=== PATIENT | male | born 1930 | race Caucasian/White ===

== ENCOUNTER → 2017-08-14 | Outpatient (CLI) | payer MEDICARE, OTHER ==
[~2017-08-14] MED LIST: ALBU90OI INH; ATOR40TA PO; Analpram-HC 2.530 GM; Anucort-Hc25 MG PR; BISA5EC PO; CEPH500 PO; CLOP75 PO; CLOT10 SS; CODACE30 PO; Citrate Of Mag300 ML PO; Clotrimazole-Be15 GM TP; Dulcolax5 MG PO; ELIQUIS2.5 MG PO; FINA5 PO; Ferrous Sulfat325 MG PO; LEVFLO500 PO; LISI20 PO; LORA10 PO; MELO7.5 PO; METO25ER PO; METR500 PO; MITIGARE0.6 MG PO; NISO10ER PO; OMEP20ER PO; OXYACE5T PO; PANT40 PO; POTA10T PO; Pantoprazole So40 MG PO; Percocet 5-3251 EACH PO; Prinivil10 MG PO; SACC250C PO; SIMV20 PO; SIMV40 PO; SULTRIDS PO; Sular17 MG PO; TAMS.4ER PO; Tylophen500 MG PO; VANC125 PO; Vancocin HCL1000 M1 IV
[2017-08-14 14:03] LABS: Adenovirus F 40/41 Not Detected (NOT DETECT); Astrovirus Not Detected (NOT DETECT); Campylobacter Sp Not Detected (NOT DETECT); Cryptosporidium Not Detected (NOT DETECT); Cyclospora Cayetanensis Not Detected (NOT DETECT); E. Coli O157 Not Detected (NOT DETECT); Entamoeba Histolytica Not Detected (NOT DETECT); Enteropathogenic E. coli-EPEC Not Detected (NOT DETECT); Enterotoxigenic E. coli-ETEC Not Detected (NOT DETECT); Giardia Lamblia Not Detected (NOT DETECT); Norovirus GI/GII Not Detected (NOT DETECT); Plesiomonas Shigelloides Not Detected (NOT DETECT); Rotavirus A Not Detected (NOT DETECT); Salmonella Sp Not Detected (NOT DETECT); Sapovirus Not Detected (NOT DETECT); Shiga Toxin-prod E. coli-STEC Not Detected (NOT DETECT); Shigella/Enteroin E. coli-EIEC Not Detected (NOT DETECT); Vibrio Cholerae Not Detected (NOT DETECT); Vibrio Sp Not Detected (NOT DETECT); Yersinia Enterocolitica Not Detected (NOT DETECT)
[2017-08-14 17:34] LABS: Enteroaggregative E. coli-EAEC Detected (NOT DETECT)
== END | disposition home or self-care (01) ==
LOC: OLS 14:01
PROVIDERS: Internal Medicine Gastroenterology
DX: R19.7 Diarrhea, unspecified (principal)
CPT/HCPCS: 87507

== ENCOUNTER 2018-01-01 05:41 | Emergency (ER) | payer MEDICARE, OTHER ==
[~2018-01-01] VITALS: Ht 165.1 cm; Wt 79.8 kg
[~2018-01-01 05:41] MED LIST changes: -MITIGARE0.6 MG PO; -Percocet 5-3251 EACH PO
[2018-01-01 07:22] LABS: BASOPHILS ABSOLUTE AUTO 0.03 K/mm3 (0.00-0.23); BASOPHILS PERCENT AUTO 0 % (0-2); EOSINOPHILS ABSOLUTE AUTO 0.01 K/mm3 (0.00-0.68); EOSINOPHILS PERCENT AUTO 0 % (0-6); Hematocrit 38.8 % (37.0-53.0); Hemoglobin 13.3 g/dL (13.5-17.5); IMMATURE GRAN ABSOLUTE AUTO 0.03 K/mm3 (0.00-0.10); IMMATURE GRAN PERCENT AUTO 0 % (0-1); LYMPHOCYTES ABSOLUTE AUTO 1.54 K/mm3 (0.84-5.20); LYMPHOCYTES PERCENT AUTO 17 % (21-46); MONOCYTES ABSOLUTE AUTO 0.86 K/mm3 (0.16-1.47); MONOCYTES PERCENT AUTO 9 % (4-13); Mean Corpuscular HGB 30.3 pg (26.0-34.0); Mean Corpuscular HGB Conc 34.3 g/dL (31.5-36.5); Mean Corpuscular Volume 88 fL (80-100); NEUTROPHILS ABSOLUTE AUTO 6.71 K/mm3 (1.96-9.15); NEUTROPHILS PERCENT AUTO 73 % (41-73); Platelet Count 145 K/mm3 (150-400); RDW Coefficient Variation 13.4 % (11.7-14.2); RDW Standard Deviation 43.3 fL (35.1-46.3); Red Blood Cell Count 4.39 M/mm3 (4.30-5.90); White Blood Cell Count 9.18 K/mm3 (4.00-11.30)
[2018-01-01 07:37] LABS: Alanine Aminotransfer (ALT/SGP 22 U/L (12-78); Albumin, Blood 3.3 g/dL (3.4-5.0); Albumin/Globulin Ratio 0.7 (0.8-1.8); Alk Phos 115 U/L (50-136); Anion Gap 10 mmol/L (6-16); Aspartate Aminotrans (AST/SGOT 20 U/L (12-37); Bilirubin, Total 1.2 mg/dL (0.1-1.0); Blood Urea Nitrogen 16 mg/dL (8-24); Bun/Creatinine Ratio 14.7 (12.0-20.0); CO2, Blood 23 mmol/L (21-32); Calcium, Blood 8.9 mg/dL (8.5-10.1); Chloride, Blood 107 mmol/L (98-108); Creatinine, Blood 1.09 mg/dL (0.60-1.20); Globulin, Blood 4.7 g/dL (2.2-4.0); Glomerular Filtration Rate >60 (60-); Glucose, Blood 135 mg/dL (70-99); Potassium, Blood 3.8 mmol/L (3.5-5.5); Sodium, Blood 140 mmol/L (136-145); Uric Acid, Blood 6.1 mg/dL (3.5-7.2)
[2018-01-01] MEDS ORDERED: Percocet 5-3251 EACH PO (07:54)
[2018-01-01] MEDS ORDERED: MITIGARE0.6 MG PO (07:54)
== END 2018-01-01 08:41 | disposition home or self-care (01) ==
LOC: ER 05:41
PROVIDERS: Emergency Medicine
DX: M25.531 Pain in right wrist (principal); M25.431 Effusion, right wrist; E11.9 Type 2 diabetes mellitus without complications; I10 Essential (primary) hypertension; E78.00 Pure hypercholesterolemia, unspecified; K21.9 Gastro-esophageal reflux disease without esophagitis; Z87.891 Personal history of nicotine dependence; Z79.01 Long term (current) use of anticoagulants; Z79.899 Other long term (current) drug therapy
CPT/HCPCS: 29125; 36415; 73110; 80053; 84550; 85025; 96374; 96375; 99284; J1885; J2405; J3010; L3917

== ENCOUNTER 2019-09-28 07:44 | Emergency (ER) | payer MEDICARE, OTHER ==
[~2019-09-28] VITALS: Ht 167.6 cm; Wt 79.8 kg
[~2019-09-28 07:44] MED LIST changes: +MITIGARE0.6 MG PO; +Percocet 5-3251 EACH PO
[2019-09-28] MEDS ORDERED: EUTHYROX25 MC1 (08:17)
[2019-09-28] MEDS ORDERED: ATOR20 (08:20)
[2019-09-28] MEDS ORDERED: ACETAMINOPHEN500 MG PO (09:16)
== END 2019-09-28 09:31 | disposition home or self-care (01) ==
LOC: ER 07:44
DX: M65.28 Calcific tendinitis, other site (principal); Z79.899 Other long term (current) drug therapy; E11.9 Type 2 diabetes mellitus without complications; I10 Essential (primary) hypertension; E78.5 Hyperlipidemia, unspecified; K21.9 Gastro-esophageal reflux disease without esophagitis; Z86.73 Personal history of transient ischemic attack (TIA), and cerebral infarction without residual deficits; Z87.891 Personal history of nicotine dependence
CPT/HCPCS: 29125; 73110; 99283-25

== ENCOUNTER → 2020-06-09 | Outpatient (CLI) | payer MEDICARE, OTHER ==
[~2020-06-09] MED LIST changes: +ACETAMINOPHEN500 MG PO; +ATOR20; +EUTHYROX25 MC1
== END | disposition home or self-care (01) ==
LOC: LAB SHORT 13:38 → LAB 13:38
DX: L08.9 Local infection of the skin and subcutaneous tissue, unspecified (principal)
CPT/HCPCS: 87070; 87205